=== PATIENT | male | born 1980 | race Caucasian/White ===

== ENCOUNTER 2021-01-20 13:39 | Outpatient (CLI) | payer OTHER ==
--- NOTE | 2021-01-20 17:11 | MRI Report ---
PROCEDURE: Lumbar Spine W/WO INDICATIONS: HX OF L-5 MICRODISCECTOMY, LOW BACK PAIN CONTRAST: IV CONTRAST: Gadavist ml: 10.8 TECHNIQUE: Noncontrast sagittal T1 spin echo and T2 fast spin echo, sagittal STIR, axial T1 and T2 fast spin ech o through the lumbar spine. After the administration of contrast, sagittal T1 spin echo with fat sat uration and axial T1 spin echo through the lumbar spine. COMPARISON: None. FINDINGS: Image quality: Excellent. Alignment and curvature: Bulging of the normal lumbar lordosis may be secondary to positioning. Marrow: Marrow is of normal overall signal. No acute vertebral body compression fractures. No susp icious marrow enhancement. Spinal cord: Conus medullaris terminates at the L1 vertebral body level. Visualized spinal cord dem onstrates normal signal, without suspicious enhancement. Paraspinous soft tissues: No paravertebral masses or abnormal enhancement. T12-L1, L1-2, L2 through the, and L3-4: No significant disc bulging, spinal canal stenosis, or neuro foraminal narrowing. L4-L5: There is disc desiccation and mild circumferential disc bulging that is eccentric towards th e left with a small posterior annular fissure as well as mild bilateral facet hypertrophy, which resu lts in mild narrowing of the left neural foramen without significant right neural foraminal narrowing . There is also crowding of the left lateral recess without definite impingement of the traversing le ft L5 nerve root. L5-S1: Postsurgical changes are seen from right hemilaminotomy. Mild facet hypertrophy is seen bila terally. There is disc desiccation and mild loss of disc space height with posterior T2 hyperintensit y, may represent a small annular fissure. A lesion is seen in the left paracentral region measuring 1 .3 x 1.1 cm on axial images with peripheral enhancement and mild extension along the posterior S1 edgardo tebral body, favored to represent recurrent disc extrusion rather than scarring (image 5 of series 60 1, and image 7 of series 301 and series 401). There is effacement of the left lateral recess with imp ingement on the traversing left S1 nerve roots. There is mild bilateral neuroforaminal narrowing. IMPRESSION: 1.Postsurgical changes are seen at the L5-S1 level, with a recurrent left paracentral disc extrusion resulting in effacement of the left lateral recess and impingement on the traversing left S1 nerve ro ot. 2.Small posterior annular fissures at the L4-5 and L5-S1 levels. Reviewed by: Marlon Cooper MD on 01/20/2021 5:10 PM PST Approved by: Marlon Cooper MD on 01/20/2021 5:10 PM PST Station ID: [id number]
== END 2021-01-20 13:40 | disposition home or self-care (01) ==
LOC: DI 13:39
DX: Z98.890 Other specified postprocedural states (principal); M51.27 Other intervertebral disc displacement, lumbosacral region; M51.87 Other intervertebral disc disorders, lumbosacral region; M51.86 Other intervertebral disc disorders, lumbar region
CPT/HCPCS: 72158; A9585

== ENCOUNTER 2022-03-26 03:41 | Outpatient (CLI) | payer OTHER | END 2022-03-26 03:42 | disposition EMS.NT | LOC: EMS 03:41 | DX: Z04.1 Encounter for examination and observation following transport accident (principal) ==